=== PATIENT | female | born 1940 | race Caucasian/White ===

== ENCOUNTER → 2016-05-23 | Outpatient (CLI) | payer OTHER ==
[~2016-05-23] MED LIST: ALPRAZOLAM PO; BALANCED B11 S PO; EYE VITAMIN PO; PROZAC10 MG PO; SEROQUEL50 M1 PO; VITAMIN D1000 UNIT PO; [UNRECOGNIZED DRUG - OTHER] PO
--- NOTE | ~2016-05-23 | CR63 ---
[facility]. [facility] A Service [facility] RADIOLOGY TEXT RESULTS PATIENT: SANDY PRADO LOCATION: [facility] : 40 UNIT #: [id number] AGE: [address]: Bethany Navarro SEX: F ORDER DR: [id number] [place] [id number] O MR#: [id number] Acc #: [id number] NAME: SANDY PRADO : 1940 SEX: F STUDY DATE/TIME: 05/23/2016 16:00 UNIT: [facility] ROOM: STUDY DESCRIPTION: CR Chest 2 View Attending Physician: Bethany Navarro A.P.R.N. Ordering Physician: Bethany Navarro A.P.R.N. Primary Care Physician: Louisa Robles M.D. MEDICAL IMAGING REPORT This report is preliminary unless electronic signature is present. EXAM PA and lateral chest, 05/23/2016. COMPARISON 07/31/2011 HISTORY Dyspnea on exertion. Breathing problems beginning months ago. FINDINGS PA and lateral views are obtained. Heart size is normal. Vascular pattern is normal. Lungs are clear. There is a calcified granuloma in the right base. The patient has a large hiatal hernia with an air-fluid level. CONCLUSION 1. Large hiatal hernia with air-fluid level. 2. No active disease. Dictated by... Rodrigue Elmore M.D. THIS IS AN ELECTRONICALLY VERIFIED REPORT Rodrigue Elmore M.D. at 05/27/2016 2:45 PM Julia TD: 05/23/2016 18:23 JOB #: [id number] MEDICAL IMAGING REPORT [facility] A Service [facility] RADIOLOGY TEXT RESULTS PATIENT: SANDY PRADO LOCATION: [facility] : 40 UNIT #: [id number] AGE: [address]: Bethany Navarro SEX: F ORDER DR: Page 1 of 1
== END | disposition home or self-care (01) ==
LOC: SRAD 15:51
DX: R06.09 Other forms of dyspnea (principal); K44.9 Diaphragmatic hernia without obstruction or gangrene
CPT/HCPCS: 71020